=== PATIENT | male | born 1985 | race Two or more races ===

== ENCOUNTER 2020-09-22 01:39 | Emergency (ER) | payer SELFPAY ==
[~2020-09-22] VITALS: Ht 180.3 cm; Wt 95.3 kg
[2020-09-22 01:48] VITALS: BP 160/90
[2020-09-22] MEDS ORDERED: KETOROLAC TROMETH 60MG/2ML VIAL IM ONE (03:30)
== END 2020-09-22 03:26 | disposition left against medical advice (07) ==
LOC: ER 01:39 → EDBD 01:39 → ER 03:26
DX: R06.02 Shortness of breath (principal); Z53.21 Procedure and treatment not carried out due to patient leaving prior to being seen by health care provider

== ENCOUNTER 2021-09-10 13:01 | Emergency (ER) | payer MEDICAID, OTHER ==
[~2021-09-10] VITALS: Ht 175.3 cm; Wt 113.1 kg
[2021-09-10 13:30] VITALS: BP 139/82
[2021-09-10 13:55] LABS: Urine Bacteria FEW /hpf (None Seen); Urine Blood 1+ /uL (Negative); Urine Specific Gravity 1.002 (1.001-1.035); Urine WBC 8 /hpf (0 - 3)
[2021-09-10] MEDS ORDERED: CIPR-173 PO (14:08)
== END 2021-09-10 14:23 | disposition home or self-care (01) ==
LOC: ER 13:01
DX: N39.0 Urinary tract infection, site not specified (principal); F17.210 Nicotine dependence, cigarettes, uncomplicated; F12.10 Cannabis abuse, uncomplicated
CPT/HCPCS: 81001